=== PATIENT | male | born 1975 | race Caucasian/White ===

== ENCOUNTER 2018-09-30 23:51 | Observation (INO) | payer BC, MEDICARE ==
[2018-10-01 01:30] LABS: #Eosinphils 0.2 thou/uL (0.0-0.7); #Lymphocytes 1.6 thou/uL (1.20-3.40); #Monocytes 0.5 thou/uL (0.11-0.59); #Neutrophils 2.9 thou/uL (1.40-6.50); %Basophils 0.6 % (0.0-1.0); %Eosinophils 3.1 % (0.0-10.0); %Lymphocytes 31.4 % (21.0-51.0); %Monocytes 8.9 % (0.0-10.0); %Neutrophils 55.9 % (42.0-75.0); Hemoglobin 13.8 g/dL (14.0-18.0); Mean Corpuscular HGB CONC 36.3 g/dL (32.0-36.0); Mean Corpuscular Hemoglobin 31.5 pg (27.0-31.0); Mean Corpuscular Volume 86.6 fL (78.0-98.0); Mean Platelet Volume 6.6 fL (7.4-10.4); Platelet Count 166 thou/uL (130-400); RBC Distribution Width 13.3 % (11.5-14.5); Red Blood Cell (RBC) Count 4.39 mill/uL (4.70-6.10); White Blood Cell (WBC) Count 5.2 thou/uL (4.8-10.8)
[2018-10-01] MEDS ORDERED: Aspirin 325 MG TAB ONE (01:39)
[2018-10-01] MEDS ORDERED: Nitroglycerin 2% Ointment 1 INCH/1 GM Packet ONE (01:40)
[2018-10-01 01:51] LABS: ALT (SGPT) 18 U/L (8-55); AST (SGOT) 15 U/L (5-34); Albumin 4.3 g/dL (3.5-5.0); Alkaline Phosphatase 97 U/L (40-150); Anion Gap 10 mmol/L (10-20); BUN (Urea Nitrogen) 22 mg/dL (8.9-20.6); Bilirubin, Total 1.3 mg/dL (0.2-1.2); Calc. Creatinine Clearance 0 mL/min (70-130); Calcium 9.5 mg/dL (7.8-10.44); Carbon Dioxide 23 mmol/L (22-29); Chloride 109 mmol/L (98-107); Estimated GFR-MDRD 82; Globulin 2.6 g/dL (2.4-3.5); Glucose 216 mg/dL (70-105); Potassium 3.9 mmol/L (3.5-5.1); Protein, Total 6.9 g/dL (6.0-8.3); Sodium 138 mmol/L (136-145)
[2018-10-01 05:17] LABS: Troponin I Less than 0.010 ng/mL (< 0.028)
[2018-10-01] MEDS ORDERED: Ondansetron PF 4 MG/2 ML Vial IVP PRN (06:53)
[2018-10-01] MEDS ORDERED: Ondansetron ODT 4 MG TAB SL PRN (06:53)
[2018-10-01] MEDS ORDERED: Acetaminophen 325 MG TAB PO PRN ×2 (06:53→21:43)
[2018-10-01 06:57] VITALS: BMI 39.7
[2018-10-01 07:48] LABS: Troponin I Less than 0.010 ng/mL (< 0.028)
[2018-10-01] MEDS ORDERED: Nitroglycerin 2% Ointment 1 INCH/1 GM Packet TOP SCH (10:00)
[2018-10-01] MEDS ORDERED: Morphine 4 MG/ML VIAL SLOW IVP SCH (10:15)
[2018-10-01] MEDS ORDERED: Morphine 4 MG/ML VIAL ONE (10:31)
[2018-10-01] MEDS ORDERED: Regadenoson 0.4 MG/5 ML SYRINGE ONE (11:31)
[2018-10-01] MEDS ORDERED: Aspirin 325 mg Enteric Coated Tablet PO SCH (12:45)
[2018-10-01] MEDS: tiZANidine HCl 4 MG TAB PO SCH ×2 (12:47→20:39)
[2018-10-01] MEDS ORDERED: Dextrose 5% in Water 1,000 ML IV PRN (15:54)
[2018-10-01] MEDS ORDERED: Dextrose 50% Abboject 50 ML SYRINGE SLOW IVP PRN (15:54)
--- NOTE | 2018-10-01 16:20 | HP ---
PRIMARY CARE PROVIDER: Dr. Todd Stout at [facility]. CHIEF COMPLAINT: Chest pain. HISTORY OF PRESENT ILLNESS: Mr. Whitfield is a pleasant 43-year-old gentleman, who was seen at [facility] on October 01, 2018. He reports that yesterday evening, he started having pain over the left side of his chest. He describes it as a pressure-like sensation, 7/10, radiating down his left arm, accompanied by shortness of breath and lightheadedness. He denies any diaphoresis or nausea. He cannot recall any aggravating or relieving factors. He denies any fevers or chills. REVIEW OF SYSTEMS: All other systems reviewed and found to be negative. PAST MEDICAL HISTORY: Absence seizures, degenerative disk disease, diabetes mellitus type 2. PAST SURGICAL HISTORY: Tonsillectomy, bilateral ear tubes, deviated nasal septum and nasal polyp removal, pilonidal cyst and abscess removal. ALLERGIES: MOTRIN. CURRENT MEDICATIONS: 1. Gabapentin 600 mg daily and 1200 mg at bedtime. 2. Glyburide 10 mg two times a day. 3. Losartan 50 mg daily. 4. Metformin 1000 mg 2 times a day. 5. Multivitamins one capsule daily. 6. Paroxetine 40 mg daily and 20 mg at bedtime. 7. Tizanidine 4 mg three times a day. 8. Topiramate 200 mg daily and 100 mg at bedtime. 9. Tramadol 50 mg daily and 100 mg at bedtime. FAMILY HISTORY: Myocardial infarction in his father. SOCIAL HISTORY: The patient denies tobacco use, alcohol use, or recreational drug use. PHYSICAL EXAMINATION: GENERAL: On examination, Mr. Whitfield is awake and alert, not in acute distress. He is obese, with a BMI of 39. VITAL SIGNS: Blood pressure is 121/72, pulse 74, respiratory rate 18, and oxygen saturation 98% on room air. He is afebrile. HEENT: Eyes; no scleral icterus. No conjunctival pallor. ENT; moist mucosal membranes. No oropharyngeal erythema or exudates. NECK: Supple, nontender. Trachea is midline. RESPIRATORY: Accessory muscles of breathing are not active. Chest wall movements are symmetric bilaterally. LUNGS: Clear to auscultation without wheeze, rhonchi, or crepitations. CARDIOVASCULAR: S1 and S2 are heard, regular. Peripheral pulses palpable. No carotid bruit. No pericardial rub. ABDOMEN: Soft, nontender. Bowel sounds heard. No hepatomegaly. No splenomegaly. NEUROLOGIC: Cranial nerves 2 through 12 intact. Deep tendon reflexes 2+. MUSCULOSKELETAL: Power is 5/5 in all four extremities. SKIN: No rashes or subcutaneous nodules. LYMPHATIC: No cervical lymphadenopathy. PSYCHIATRIC: Normal mood, normal affect. The patient is oriented to person, place, and time. LABORATORY DATA: Mr. Whitfield's labs and investigations were reviewed. He had an EKG, which shows normal sinus rhythm, no ST changes to suggest an acute coronary syndrome. Chest x-ray has not been done. He has normal white count, normocytic anemia with hemoglobin 13.8, normal platelet count. Elevated blood urea nitrogen of 22, elevated total bilirubin of 1.3, otherwise unremarkable comprehensive metabolic profile. Troponin-I that is negative x3. ASSESSMENT AND PLAN: Mr. Whitfield is a pleasant 43-year-old gentleman, who was seen at [facility] on October 01, 2018. His problem list includes: 1. Chest pain: Etiology is unclear, but given his risk factors, Mr. Whitfield will be admitted to the hospital on observation status for telemetry monitoring and stress test. Further course of action depending on outcome of these measures. 2. Diabetes mellitus type 2: We will start Accu-Cheks and insulin sliding scale. 3. History of seizures: We will resume home medications. 4. Chronic back pain: We will continue home medications. Many thanks for allowing me to participate in your patient's care. Please feel free to contact me with any questions or concerns. LEVEL OF RISK: Moderate. LEVEL OF COMPLEXITY: Moderate. Job ID: [id number]
[2018-10-01] MEDS: glyBURIDE 5 MG TAB PO SCH (16:23)
[2018-10-01] MEDS: metFORMIN 500 MG TAB PO SCH (16:23)
[2018-10-01] MEDS: HumaLOG 300 UNITS/3 ML VIAL SC PRN (16:29)
--- NOTE | 2018-10-01 17:45 | RAD ---
FEXAM: Chest PA and lateral: HISTORY: Chest pain COMPARISON: none FINDINGS: Lung hein are clear. Vascular markings are normal. Heart and mediastinum appear unremarkable. Vascularity is normal. Osseous structures are unremarkable. IMPRESSION: Unremarkable chest
[2018-10-01] MEDS ORDERED: Gabapentin 400 MG CAP PO SCH (21:00)
[2018-10-01] MEDS ORDERED: traMADol HCl 50 MG TAB PO SCH (21:00)
[2018-10-01] MEDS ORDERED: PARoxetine 20 MG TAB PO SCH (21:00)
[2018-10-01] MEDS ORDERED: Topiramate 100 MG TAB PO SCH (21:00)
[2018-10-01] MEDS ORDERED: Aspirin/APAP/Caffeine Tab (Excedrin Migraine) PO PRN (21:43)
[2018-10-02 08:02] VITALS: TEMP 97.7
[2018-10-02] MEDS: tiZANidine HCl 4 MG TAB PO SCH ×2 (08:10→14:56)
[2018-10-02] MEDS: glyBURIDE 5 MG TAB PO SCH (08:11)
[2018-10-02] MEDS: metFORMIN 500 MG TAB PO SCH (08:12)
[2018-10-02] MEDS ORDERED: VIT D3 PO SCH (09:00)
[2018-10-02] MEDS ORDERED: DHA PO SCH (09:00)
[2018-10-02] MEDS ORDERED: PARoxetine 20 MG TAB PO SCH (09:00)
[2018-10-02] MEDS ORDERED: Losartan 25 MG TAB PO SCH (09:00)
[2018-10-02] MEDS ORDERED: FISH OIL PO SCH (09:00)
[2018-10-02] MEDS ORDERED: Multivit, Therapeutic 1 TAB PO SCH (09:00)
[2018-10-02] MEDS ORDERED: Gabapentin 300 MG CAP PO SCH (09:00)
[2018-10-02] MEDS ORDERED: OMEGA3 PO SCH (09:00)
[2018-10-02] MEDS ORDERED: EPA PO SCH (09:00)
[2018-10-02] MEDS ORDERED: Aspirin 325 mg Enteric Coated Tablet PO SCH (09:00)
[2018-10-02] MEDS ORDERED: Topiramate 100 MG TAB PO SCH (09:00)
[2018-10-02] MEDS ORDERED: traMADol HCl 50 MG TAB PO SCH (09:00)
--- NOTE | 2018-10-02 11:29 | NM ---
FNM Cardiac Stress W EF WF History: [Chest pain, diabetes] Comparison: None. Findings: Stress and rest performed after the intravenous administration of 30 and 29.6 mCi technetiu m 99m sestamibi, respectively. No scar or ischemia. Ejection fraction is 62%, normal. Normal wall motion. Impression: Normal cardiac stress test and ejection fraction.
[2018-10-02] MEDS: HumaLOG 300 UNITS/3 ML VIAL SC PRN (11:32)
[2018-10-02 12:06] VITALS: BP 106/65
--- NOTE | 2018-10-03 02:33 | DIS ---
DATE OF ADMISSION: 10/01/2018 DATE OF DISCHARGE: 10/02/2018 PRIMARY CARE PROVIDER: Dr. Stout at [facility] in [place]. DISCHARGE DIAGNOSIS: Chest pain, most likely musculoskeletal etiology for chest pain. CONDITION OF PATIENT ON THE DAY OF DISCHARGE: Stable. I assessed Mr. Whitfield on the day of discharge. He denies any chest pain. Vital signs are stable. S1 and S2 are heard, regular. Lungs are clear to auscultation bilaterally. DISCHARGE MEDICATIONS: No change was made to his pre-admission home medications as dictated on my history and physical note dated October 01, 2018. HOSPITAL COURSE: Mr. Whitfield is a pleasant 43-year-old gentleman who was admitted to [facility] on observation status on October 01, 2018, for chest pain. Please refer to my history and physical note dated October 01, 2018, for further details. His chest pain resolved following admission. He had a nuclear stress test, which was normal. Left ventricular ejection fraction was 62%. He also had a normal D-dimer. He is being discharged home in a stable condition. Many thanks for allowing me to participate in your patient's care. Please feel free to contact me with any questions or concerns. DISCHARGE DESTINATION: Home. Job ID: [id number]
== END 2018-10-02 15:28 | disposition home or self-care (01) ==
LOC: ERS 23:51 → 2SW 10-01 04:20
PROVIDERS: ADMIT Hospitalist; ATTEND Hospitalist
DX: R07.9 Chest pain, unspecified (principal); E11.9 Type 2 diabetes mellitus without complications; G40.A09 Absence epileptic syndrome, not intractable, without status epilepticus; Z90.89 Acquired absence of other organs; Z88.5 Allergy status to narcotic agent; Z88.6 Allergy status to analgesic agent; Z79.84 Long term (current) use of oral hypoglycemic drugs; Z79.891 Long term (current) use of opiate analgesic; Z79.899 Other long term (current) drug therapy; Z98.890 Other specified postprocedural states
CPT/HCPCS: 36415; 36416; 71046; 78452; 80053; 84484; 85025; 85379; 93005; 93017; 96374; A9500; G0378; J2270; J2785

== ENCOUNTER 2019-01-29 07:33 | Outpatient (CLI) | payer BC, MEDICARE ==
--- NOTE | 2019-01-29 10:19 | MRI ---
MRI CERVICAL SPINE NONCONTRAST: Date: 01/29/19 HISTORY: 43-year-old male with cervical radiculopathy. COMPARISON: 11/16/16. FINDINGS: Vertebral body heights are maintained. Cervical spinal cord is normal in size and signal. There is no high grade central spinal canal stenosis or high grade neural foraminal stenosis, at any level. No c ord impingement or nerve root impingement at any level. Normal bone marrow signal. All images are deg raded by patient motion. No high grade facet DJD at any level. No major interval change. No Chiari I malformation. IMPRESSION: Essentially normal. POS: [facility]
--- NOTE | 2019-01-29 11:10 | MRI ---
MRI THORACIC SPINE WITH AND WITHOUT CONTRAST: Date: 01/29/19 HISTORY: Epidural abscess and right lower extremity weakness, in 43-year-old male. COMPARISON: None. FINDINGS: Vertebral body heights are maintained. Alignment is normal. Spinal canal and thecal sac are generous in caliber throughout all levels. Tiny central disc-osteophyte complexes abut the ventral surface of the spinal cord at most levels from T3-4 through T10-11. Conus medullaris terminates at T12-L1. No ne ural foraminal stenosis at any level. No ramona nerve root impingement at any level. No abnormal enhan cement or mass in the intramedullary, extramedullary-intradural, extradural, intraosseous, and perive rtebral, spaces. No syringohydromyelia. Thoracic spinal cord is normal in size and signal, but it is anteriorly positioned within the thecal sac throughout the thoracic spine. This by itself would not necessarily be abnormal, but it is noted that the conus medullaris is very anteriorly positioned, whi ch is a dramatic interval change compared to prior lumbar spine MRI. The anterior positioning is appa rently related to the chronic arachnoiditis. See report of today's lumbar spine MRI. IMPRESSION: 1. Ventrally positioned thoracic spinal cord, apparently related to chronic arachnoiditis. 2. No central stenosis and no cord compression. POS: [facility]
--- NOTE | 2019-01-29 11:18 | MRI ---
MRI LUMBAR SPINE WITH AND WITHOUT CONTRAST: DATE: 01/29/19 HISTORY: 43-year-old male with history of epidural abscess presents with right lower extremity weakness. COMPARISON: Noncontrast MRI of 06/21/16. TECHNIQUE: Multiple sequences obtained in axial and sagittal planes, pre and post IV injection of gadolinium-bas ed contrast agent: 20 mL MultiHance. FINDINGS: For the purposes of this report, the first non-rib bearing vertebra, as demonstrated on the CT , is T12 rather than L1. The last morphologically lumbar-type vertebra is L5. This labeling system is also consistent with that obtained on today's thoracic spine MRI. Vertebral body heights are maintai juvencio. No major spondylolisthesis. The T11-12 through L3-4 intervertebral discs are normal in height an d signal. There is mild disc desiccation without disc space narrowing at L4-5 and L5-S1. There is no central spinal canal stenosis at any level. In fact, the spinal canal and thecal sac are generous in caliber at all levels. There is a new finding of Somewhat severe asymmetric clumping of cauda equina at all levels. Furthermore, the lower spinal cord and conus medullaris are positioned far anteriorly within the thecal sac on the current MRI, whereas it was normally positioned posteriorly on the previ ous MRI of 06/21/16. The vertebral body heights are maintained. No high grade neural foraminal stenos is at any level. Degenerative facet changes are mild at L4-5. The facet joints are slightly hypoplast ic at L5-S1. There is no abnormal enhancement or mass in the intramedullary, extramedullary-intradura l, intraosseous, or perivertebral, spaces. No epidural abscess. IMPRESSION: 1. Somewhat severe chronic arachnoiditis throughout all levels. 2. The degree of lumbar spondylosis is mild, and there is no central stenosis or high grade neural f oraminal stenosis at any level. [facility] Concepc[facility] POS: [facility]
== END 2019-01-29 07:34 | disposition home or self-care (01) ==
LOC: TBSIIMAG 07:33
PROVIDERS: ATTEND Neurological Surgery
DX: M54.12 Radiculopathy, cervical region (principal); G06.1 Intraspinal abscess and granuloma; M47.816 Spondylosis without myelopathy or radiculopathy, lumbar region
CPT/HCPCS: 72141; 72157; 72158

== ENCOUNTER 2019-02-14 09:30 | Outpatient (CLI) | payer BC, MEDICARE ==
--- NOTE | 2019-02-14 10:19 | RAD ---
RIGHT HIP TWO VIEWS: HISTORY: Hip pain. FINDINGS: Femoral head contour is normal. No significant degenerative change. No acute abnormality. IMPRESSION: Unremarkable right hip. POS: [facility]
--- NOTE | 2019-02-14 10:20 | RAD ---
LEFT HIP TWO VIEWS: HISTORY: Hip pain. FINDINGS: Femoral head contour is normal. No significant degenerative change. No fracture or acute abnormalit y. IMPRESSION: Unremarkable left hip. POS: [facility]
== END 2019-02-14 09:31 | disposition home or self-care (01) ==
LOC: TBSIIMAG 09:30
PROVIDERS: ATTEND Neurological Surgery
DX: M25.552 Pain in left hip (principal); M25.551 Pain in right hip